=== PATIENT | male | born 1970 | race Caucasian/White ===

== ENCOUNTER 2016-11-23 22:28 | Emergency (ER) | payer OTHER ==
[2016-11-23 22:37] VITALS: BP 163/101
[2016-11-23] MEDS ORDERED: HYDROmorphone 1 MG/ML Syringe IVPUSH ONE (22:42)
[2016-11-23] MEDS ORDERED: Ondansetron 4 MG/2 ML SDV IVPUSH ONE (22:42)
[2016-11-23] MEDS ORDERED: Sodium Chloride 0.9% 1,000 ML IV SCH (22:45)
[2016-11-23] MEDS ORDERED: Diphtheria,Pertussis(Acell),Tetanus Vaccine 0.5 ML SDV inactive IM ONE (22:51)
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
[2016-11-24] MEDS ORDERED: Acetaminophen/oxyCODONE 325-5 MG Tab PO STA (00:20)
--- NOTE | 2016-11-24 08:30 | CT ---
CT chest Technique: Multiple axial sections through the chest were obtained. Intravenous contrast was utilized. Mediastinum and hilar regions show no adenopathy or mass. Mild coronary artery calcification is seen. No pericardial thickening is seen. No axillary adenopathy is seen. Lungs are clear. No pulmonary contusion or pleural effusion is seen. No pneumothorax is identified. Bone window settings were reviewed nondisplaced right clavicle fracture is seen. Minimal lucency is seen within the posterior fourth rib suspicious for nondisplaced fracture. No additional rib abnormality is appreciated. Minimal lucency within the right scapula seen possibly due to minimal scapular body fracture. Vertebral body heights and disc spaces are maintained within the thoracic spine. Reconstructed sagittal images of the sternum appear within normal limits. Impression: 1. Nondisplaced right clavicular fracture. Possible nondisplaced fracture within the posterior right rib. Questionable nondisplaced right scapular fracture within the body. 2. CT study of the chest is otherwise unremarkable. Diagnostic code #3 I agree with preliminary report issued by [facility] (preliminary report dictated on 11/24/16, 12:57 AM Central Time) CT abdomen and pelvis Technique: Multiple axial sections were obtained from above diaphragm inferiorly through the pubic symphysis. Intravenous contrast was utilized. No oral contrast has been given. Liver shows no focal parenchymal abnormality. Spleen appears within normal limits. Gallbladder shows no calcified gallstones. Adrenal glands are unremarkable. Kidneys show symmetric contrast enhancement without hydronephrosis. Two small cortical lesions noted within the left kidney which are felt compatible with small exophytic cysts. Kidneys are otherwise unremarkable. Pancreas appears within normal limits. Aorta shows atherosclerotic change without aneurysmal dilatation. No retroperitoneal adenopathy or mesenteric abnormalities are seen. Appendix is seen which appears normal. No pelvic mass or adenopathy is seen. No inflammatory change or free fluid is seen. No bowel dilatation is seen. Bone window settings were reviewed which show no discrete osseous abnormality. Impression: 1. Incidental findings. Nothing acute is identified on CT study of the abdomen and pelvis. Diagnostic code #2 I agree with preliminary report issued by [facility] (preliminary report dictated on 11/24/16, 1:01 AM Central Time)
--- NOTE | 2016-11-24 08:30 | CT ---
CT cervical spine Technique: Multiple axial sections were obtained from above C1 inferiorly to the bottom of T2. Reconstructed sagittal and coronal images were reviewed. Mastoid sinuses and middle ear cavities are clear. Posterior skull base is intact. Mild disc space narrowing noted at C4-C5. Moderate disc space narrowing noted at C5-C6. Anterior endplate osteophytes noted at C4-C5 and C5-C6 as well as mild posterior spurring at C5-C6. Mild degenerative change noted within the uncovertebral joints at C4-C5 and C5-C6. Vertebral bodies and posterior arches are intact. No fracture is seen. Comminuted but nondisplaced right clavicle fracture again noted. Partially seen fracture suggested posteriorly within the right fourth rib. No bony central or bony neural foraminal stenosis is seen. No abnormal subluxation is seen on the reconstructed sagittal images. Impression: 1. Fractures within the right clavicle and right fourth rib. 2. Degenerative change as described above. 3. Nothing acute seen within the cervical spine. Diagnostic code #3 I agree with preliminary report issued by [facility] (preliminary report dictated on 11/24/16, 12:58 AM Central Time)
--- NOTE | 2016-11-24 08:30 | CT ---
Head CT Technique: Multiple axial sections through the brain were obtained. Intravenous contrast was not utilized. Comparison: No previous intracranial imaging. Findings: Soft tissue swelling seen within the right frontal scalp. Ventricles along with basal cisterns and sulci over the convexities are within normal limits. No abnormal parenchymal densities are seen. No evidence of intracranial hemorrhage. No midline shift or mass effect is seen. Bone window settings were reviewed which show the mastoid sinuses and middle ear cavity to appear clear. Visualized paranasal sinuses are clear. No acute calvarial abnormality is identified. Impression: 1. Soft tissue swelling within the right frontal scalp. 2. No acute intracranial abnormality is identified. Diagnostic code #2 I agree with preliminary report issued by [facility] (preliminary report dictated on 11/24/16, 12:43 AM Central Time)
== END 2016-11-24 00:58 | disposition home or self-care (01) ==
LOC: JD.ED 22:28
DX: S42.001A Fracture of unspecified part of right clavicle, initial encounter for closed fracture (principal); S22.31XA Fracture of one rib, right side, initial encounter for closed fracture; S60.512A Abrasion of left hand, initial encounter; S60.511A Abrasion of right hand, initial encounter; S00.81XA Abrasion of other part of head, initial encounter; S00.31XA Abrasion of nose, initial encounter; V29.88XA Motorcycle rider (driver) (passenger) injured in other specified transport accidents, initial encounter; Y92.410 Unspecified street and highway as the place of occurrence of the external cause; F32.9 Major depressive disorder, single episode, unspecified; Z98.890 Other specified postprocedural states; Z23 Encounter for immunization
CPT/HCPCS: 36415; 70450; 71260; 72125; 74177; 80053; 85025; 90471; 96361; 96374; 96375; 99285; A9270; J1170; J2405; J7040; 90715

== ENCOUNTER 2025-05-21 08:55 | Day surgery (SDC) | payer BC ==
[~2025-05-21 08:55] MED LIST: Sodium Chloride 0.9% 10 ML Syringe FLUSH PRN; Sodium Chloride 0.9% 10 ML Syringe FLUSH SCH
[2025-05-21] MEDS: Lactated Ringers 1,000 ML IV SCH (09:45)
[2025-05-21] MEDS ORDERED: Midazolam 1 MG/ML 2 ML SDV ONE (10:02)
[2025-05-21] MEDS ORDERED: Lidocaine 1% 4 ML ONE (10:02)
[2025-05-21] MEDS ORDERED: Propofol 200 MG/20 ML SDV ONE ×2 (10:02→11:46)
== END 2025-05-21 13:00 | disposition home or self-care (01) ==
LOC: JD.SDS 08:55
PROVIDERS: ATTEND Surgery
DX: Z12.11 Encounter for screening for malignant neoplasm of colon (principal); D12.8 Benign neoplasm of rectum; I10 Essential (primary) hypertension; F41.9 Anxiety disorder, unspecified; F32.A Depression, unspecified; E78.00 Pure hypercholesterolemia, unspecified; I25.10 Atherosclerotic heart disease of native coronary artery without angina pectoris; K21.9 Gastro-esophageal reflux disease without esophagitis; E11.9 Type 2 diabetes mellitus without complications; G47.33 Obstructive sleep apnea (adult) (pediatric); Z79.82 Long term (current) use of aspirin; Z79.899 Other long term (current) drug therapy
CPT/HCPCS: 00811; J2003; J2250; J2704; J7120